=== PATIENT | male | born 1975 | race Caucasian/White ===

== ENCOUNTER 2021-09-28 16:45 | Outpatient (RCR) | payer SELFPAY | END 2021-11-14 11:36 | disposition home or self-care (01) | PROVIDERS: Visit Provider Physician Assistant | DX: M54.41 Lumbago with sciatica, right side (principal); M62.81 Muscle weakness (generalized); M25.559 Pain in unspecified hip; Z51.89 Encounter for other specified aftercare | CPT/HCPCS: 97110; 97162 ==